=== PATIENT | male | born 1990 | race Caucasian/White ===

== ENCOUNTER 2018-03-12 10:51 | Emergency (ER) | payer SELFPAY ==
[2018-03-12] MEDS ORDERED: WATER FOR INJ,STERILE 10 ML ONE (11:30)
[2018-03-12] MEDS ORDERED: ZIPRASIDONE MESYLA 20 MG/VIAL IM ONE ×2 (11:30→17:44)
[2018-03-12 11:36] LABS: Absolute Lymphocytes (CBC) 1.5 K/uL (0.7-4.9); Absolute Monocytes 0.9 K/uL (0.1-1.3); Absolute Neutrophil 6.1 K/uL (1.8-8.0); Basophils % 0.9 % (0-1.3); Eosinophils % 0.1 % (0-4.4); Hematocrit 43.6 % (39.6-49.0); Lymphocytes % 17.8 % (15.3-44.8); MCH 31.5 pg (27.0-35.0); MCV 92.2 fL (80-100); MPV 8.4 fL (7.6-11.3); RBC Red Blood Cell Count 4.73 M/uL (4.33-5.43)
[2018-03-12 11:40] LABS: Protime INR 1.07
[2018-03-12 11:53] LABS: Bicarbonate 28 mEq/L (21-31); Glucose Level 103 mg/dL (65-120); Potassium 3.1 mEq/L (3.6-5.0); Sodium Level 137 mEq/L (135-145)
[2018-03-12 11:57] LABS: ALT/SGPT 17 IU/L (10-60); AST/SGOT 38 IU/L (10-42); Albumin 4.4 g/dL (3.2-5.5); BUN Blood Urea Nitrogen 10 mg/dL (6-20); Protein, Total 7.6 g/dL (6.0-8.3)
[2018-03-12 15:23] LABS: Alkaline Phosphatase 54 IU/L (42-121); Bilirubin Direct 0.2 mg/dL (0-0.2)
[2018-03-12] MEDS ORDERED: POTASSIUM CL SA 10 MEQ TAB PO ONE (15:27)
[2018-03-12 15:46] LABS: Alcohol Serum/Plasma < 10 mg/dl
[2018-03-12] MEDS ORDERED: LIDOCAINE 1% 20 ML MDV ONE (16:29)
[2018-03-13 03:16] LABS: Urine Blood NEGATIVE (NEG); Urine Glucose NEGATIVE (NEG); Urine Protein NEGATIVE (NEG); Urine Specific Gravity 1.025 (1.005-1.030); Urine pH 6.5 (5.0-7.0)
[2018-03-13] MEDS ORDERED: LORazepam 2 MG/ML VIAL ONE (03:21)
[2018-03-13] MEDS ORDERED: HALOPERIDOL LACT 5 MG/ML INJ ONE (03:22)
[2018-03-13 03:28] LABS: Barbiturates NEGATIVE; Benzodiazepines NEGATIVE; Cocaine NEGATIVE; Opiates NEGATIVE; Phencyclidine NEGATIVE; THC Cannibis NEGATIVE
[2018-03-13 03:32] LABS: METHAMPHETAM POSITIVE (NEGATIVE)
--- NOTE | 2018-03-13 06:58 | EKG ---
Test Date: 2018-03-12 Test Time: 11:14:01 [employer] Analyst: ROCK MEASUREMENT RESULTS: Intervals: Rate: 102 AK: 130 QRSD: 80 QT: 346 QTc: 450 [place]: P: 56 AK: 130 QRS: 68 T: 36 INTERPRETIVE STATEMENTS: Sinus tachycardia Minimal voltage criteria for LVH, may be normal variant Borderline ECG No previous ECG available for comparison Electronically Signed On 03-13-18 06:55:38 CDT by Tha Khan
--- NOTE | 2018-03-13 13:26 | EDPHYS ---
Physician Documentation [facility] Name: Quincy Cooper Age: 27 yrs Sex: Male : 1990 Arrival Date: 03/12/2018 Time: 10:55 Bed 17 Private MD: ED Physician Rj Mihcel HPI: 03/13 09:50 This 27 yrs old Male presents to ER via EMS with complaints of Psych Problem. kdr 09:50 The patient presents to the emergency department with anxiety, over unknown kdr circumstances, paranoia, psychosis, has experienced auditory hallucinations, has experienced visual hallucinations, has delusions. Past psychiatric history: Prior diagnosis: schizophrenia. Associated signs and symptoms:. Severity of symptoms: At their worst the symptoms were moderate severe incapacitating just prior to arrival, in the emergency department the symptoms are unchanged. The patient has experienced similar episodes in the past, chronically. It is unknown whether or not the patient has recently seen a physician. Historical: - Allergies: 03/12 11:00 Amoxicillin; tw2 - Home Meds: 11:00 Seroquel 50 mg Oral tab 1 tab 2 times per day [Active]; tw2 - PMHx: 11:00 Unable to obtain; tw2 - PSHx: 11:00 Unable to obtain; tw2 - Immunization history:: Adult Immunizations unknown. - Social history:: Smoking status: Patient uses tobacco products, smokes one pack cigarettes per day. Patient/guardian denies using street drugs. - Ebola Screening: : Patient denies travel to an Ebola-affected area in the 21 days before illness onset. ROS: 03/13 09:50 Constitutional: The patient is unable to give a history secondary to his psychosis and kdr overall sate of mind Unable to obtain ROS due to patient being uncooperative. Exam: 09:50 Constitutional: This is a well developed, well nourished patient who is awake, alert, kdr and in moderate distress. He is jerking and looking at the ceiling talking to himself about voices in his head Head/Face: Normocephalic, atraumatic. Eyes: Pupils equal round and reactive to light, extra-ocular motions intact. Lids and lashes normal. Conjunctiva and sclera are non-icteric and not injected. Cornea within normal limits. Periorbital areas with no swelling, redness, or edema. Neck: Trachea midline, no thyromegaly or masses palpated, and no cervical lymphadenopathy. Supple, full range of motion without nuchal rigidity, or vertebral point tenderness. No Meningismus. Chest/axilla: Normal chest wall appearance and motion. Nontender with no deformity. No lesions are appreciated. Cardiovascular: Regular rate and rhythm with a normal S1 and S2. No gallops, murmurs, or rubs. Normal PMI, no JVD. No pulse deficits. Respiratory: Lungs have equal breath sounds bilaterally, clear to auscultation and percussion. No rales, rhonchi or wheezes noted. No increased work of breathing, no retractions or nasal flaring. Abdomen/GI: Soft, non-tender, with normal bowel sounds. No distension or tympany. No guarding or rebound. No evidence of tenderness throughout. Back: No spinal tenderness. No costovertebral tenderness. Full range of motion. Neuro: Awake and alert, GCS 15, oriented to person, place, time, and situation. Cranial nerves II-XII grossly intact. Motor strength 5/5 in all extremities. Sensory grossly intact. Cerebellar exam normal. Normal gait. Psych: Awake, alert, with orientation to person, place and time. Behavior, mood, and affect are within normal limits. 09:50 Skin: abscess, that is small, approximately 2 cm(s), of the right wrist, with fluctuance, that is mild, with induration, with pointing, that is obvious, with surrounding cellulitis, that is mild. 09:50 Psych: Behavior/mood is anxious, inappropriate for age, Affect is animated, Oriented to person, place, only. Patient has no thoughts/intents to harm self or others. Judgement / Insight is impaired. Delusions/hallucinations are present and described as hearing voices, his sister and seeing things which he can't describe. Vital Signs: 03/12 10:56 BP 126 / 90; Pulse 97; Resp 24; Temp 98.6(O); Pulse Ox 100% on R/A; Weight 68.04 kg; tw2 Height 5 ft. 5 in. (165.10 cm); Pain 0/10; 11:38 BP 145 / 98; Pulse 103; Resp 20; Pulse Ox 98% on R/A; mh5 12:22 BP 115 / 81; Pulse 95; Resp 17; Pulse Ox 98% on R/A; tw2 13:16 BP 93 / 70 Supine; Pulse 88; Resp 16; Pulse Ox 98% on R/A; tw2 14:37 BP 102 / 73; Pulse 77; Resp 17; Pulse Ox 97% on R/A; tw2 15:13 BP 95 / 58; Resp 18; Pulse Ox 100% ; ag 16:18 BP 115 / 70; Pulse 102; Resp 18; Pulse Ox 98% on R/A; tw2 17:18 BP 116 / 79; Pulse 89; Resp 18; Pulse Ox 99% on R/A; tw2 18:20 BP 117 / 67; Pulse 83; Resp 16; Pulse Ox 99% on R/A; tw2 22:28 BP 108 / 75 LA Supine (auto/reg); Pulse 77 LA; Resp 18 S; Temp 97.8(O); Pulse Ox 96% on cb2 R/A; Pain 0/10; 03/13 00:00 BP 106 / 53; Pulse 68; Resp 18; Pulse Ox 99% on R/A; lp1 02:00 BP 124 / 71; Pulse 66; Resp 16; Pulse Ox 99% on R/A; lp1 04:00 BP 94 / 54; Pulse 76; Resp 16; Pulse Ox 99% on R/A; lp1 05:30 BP 100 / 70; Pulse 78; Resp 16; Pulse Ox 99% on R/A; lp1 07:00 BP 93 / 60; Pulse 73; Resp 16; Pulse Ox 98% on R/A; lp1 08:15 BP 126 / 71; Pulse 66; Resp 16; Pulse Ox 99% on R/A; em 11:00 BP 110 / 72; Pulse 66; Resp 18; Pulse Ox 98% on R/A; Pain 0/10; em 13:00 BP 116 / 74; Pulse 69; Resp 16; Pulse Ox 99% on R/A; em 03/12 10:56 Body Mass Index 24.96 (68.04 kg, 165.10 cm) tw2 Procedures: 03/12 17:31 I \T\ D: Incision and drainage was performed for an abscess of the right right wrist [id number] Prepped with Betadine, Anesthetized with 4 ml's 1% Lidocaine. Incised with #10 blade. Drained small amount purulent fluid. bloody fluid. Loculations removed. Cultures obtained. Abscess cavity explored. Packed with iodoform gauze, Dressing: sterile 4x4 gauze, the patient tolerated the procedure well. MDM: 03/13 09:50 Data reviewed: vital signs. Counseling: I had a detailed discussion with the patient kdr and/or guardian regarding: the historical points, exam findings, and any diagnostic results supporting the discharge/admit diagnosis, lab results, radiology results, the need to transfer to another facility. ED course: The patient would occasionally get agitated but was cooperative with Geodon administration which cause him to sleep. He was not violent toward the staff. 13:24 Patient medically screened. [facility] 03/12 11:00 Order name: Acetaminophen; Complete Time: 13:17 [facility] 03/12 11:00 Order name: Basic Metabolic Panel; Complete Time: 13: [facility] 03/12 11:00 Order name: CBC with Diff; Complete Time: 13:42 [facility] 03/12 11:00 Order name: ETOH Level; Complete Time: 13: [facility] 03/12 11:00 Order name: Hepatic Function; Complete Time: 13: [facility] 03/12 11:00 Order name: PT-INR; Complete Time: 13:42 [facility] 03/12 11:00 Order name: Ptt, Activated; Complete Time: 13:42 [facility] 03/12 11:00 Order name: Salicylate; Complete Time: 13:17 [facility] 03/12 11:00 Order name: Urine Drug Screen; Complete Time: 13: [facility] 03/12 16:47 Order name: Wound Culture tw2 03/13 03:13 Order name: Urine Dipstick--Ancillary (enter results); Complete Time: 13:17 [facility] 03/12 11:00 Order name: EKG; Complete Time: 11:00 [facility] 03/12 11:00 Order name: EKG - Nurse/Tech; Complete Time: 12:01 [facility] 03/12 11:00 Order name: IV Saline Lock; Complete Time: 12:01 [facility] 03/12 11:00 Order name: Labs collected and sent; Complete Time: 12: [facility] 03/12 11:00 Order name: Urine Dipstick-Ancillary (obtain specimen); Complete Time: 04:14 [facility] 03/12 16:40 Order name: Diet Regular; Complete Time: 16:40 bd 03/13 09:11 Order name: Diet Regular; Complete Time: 09:11 em Administered Medications: 03/12 11:35 Drug: Geodon 20 mg Route: IM; Site: right deltoid; tw2 12:00 Follow up: Response: No adverse reaction; Marked relief of symptoms; Marked relief of tw2 symptoms, pt asleep at this time. 15:28 Drug: Potassium Chloride 40 mEq Route: PO; tw2 17:48 Follow up: Response: No adverse reaction tw2 17:47 Drug: Geodon 20 mg Route: IM; Site: left deltoid; tw2 18:20 Follow up: Response: No adverse reaction; Marked relief of symptoms tw2 03/13 03:29 Drug: Ativan 2 mg Route: IM; Site: right gluteus; lp1 09:00 Follow up: Response: No adverse reaction em 03:30 Drug: HALdol (as decanoate) 10 mg Route: IM; Site: right gluteus; lp1 09:00 Follow up: Response: No adverse reaction em Disposition: 09:50 Co-signature as Attending Physician, Silver Ryan MD I agree with the assessment and kdr plan of care. Disposition: 03/13/18 13:24 Discharged to Home. Impression: Suicidal ideations, Adverse effect of amphetamines. - Condition is Stable. - Discharge Instructions: Depression, Adult, Polysubstance Abuse, Helping Someone Who is Suicidal, No-harm Safety Contract, Depression, Adult, [id number]. - Medication Reconciliation Form, Thank You Letter, Antibiotic Education, Prescription Opioid Use form. - Follow up: Private Physician; When: 2 - 3 days; Reason: Recheck today's complaints, Continuance of care, Re-evaluation by your physician. - Problem is new. - Symptoms have improved. Signatures: Dispatcher [employer] EDRj Hearn MD MD cha Rittger, Kevin, MD MD kdr Munoz, Colin, CEO & [employer] FOUNDER CEO [employer] F[employer]ER em Lashay Birmingham RN RN lp1 Pedro Carballo PA PA jr8 Katerina Ponce RN RN tw2 Ta Mora MD MD gs Corrections: (The following items were deleted from the chart) 13:38 13:24 03/13/2018 13:24 Discharged to Home. Impression: Suicidal ideations; Adverse em effect of amphetamines. Condition is Stable. Forms are Medication Reconciliation Form, Thank You Letter, Antibiotic Education, Prescription Opioid Use. Follow up: Private Physician; When: 2 - 3 days; Reason: Recheck today's complaints, Continuance of care, Re-evaluation by your physician. Problem is new. Symptoms have improved. keeley
--- NOTE | 2018-03-13 13:26 | ER ---
Nurse's Notes [facility] Name: Quincy Cooper Age: 27 yrs Sex: Male : 1990 Arrival Date: 03/12/2018 Time: 10:55 Bed 17 Private MD: Diagnosis: Suicidal ideations;Adverse effect of amphetamines Presentation: 03/12 10:55 Presenting complaint: EMS states: Geoff DE LA O was called because [place] the [address], he has been off his meds, he takes Seroquel, he says his "family is out to get me", and he is hearing voices, he is agitated, but cooperative, abscess to right wrist. Transition of care: patient was not received from another setting of care. Onset of symptoms was March 12, 2018. Risk Assessment: Do you want to hurt yourself or someone else? Patient reports no desire to harm self or others. Initial Sepsis Screen: Does the patient meet any 2 criteria? No. Patient's initial sepsis screen is negative. Does the patient have a suspected source of infection? No. Patient's initial sepsis screen is negative. Care prior to arrival: None. 10:55 Method Of Arrival: EMS: [facility] [place] [place] [facility] tw2 10:55 Acuity: ELIANE 2 tw2 Historical: - Allergies: 11:00 Amoxicillin; tw2 - Home Meds: 11:00 Seroquel 50 mg Oral tab 1 tab 2 times per day [Active]; tw2 - PMHx: 11:00 Unable to obtain; tw2 - PSHx: 11:00 Unable to obtain; tw2 - Immunization history:: Adult Immunizations unknown. - Social history:: Smoking status: Patient uses tobacco products, smokes one pack cigarettes per day. Patient/guardian denies using street drugs. - Ebola Screening: : Patient denies travel to an Ebola-affected area in the 21 days before illness onset. Screenin:02 Abuse screen: Denies threats or abuse. Nutritional screening: No deficits noted. tw2 Tuberculosis screening: No symptoms or risk factors identified. Fall Risk None identified. Assessment: 11:01 General: Appears in no apparent distress. unkempt, Behavior is agitated, anxious. Pain: tw2 Denies pain. Neuro: Level of Consciousness is awake, alert, obeys commands, Oriented to person, place, situation. Cardiovascular: Denies chest pain, shortness of breath, Heart tones S1 S2 Capillary refill < 3 seconds Patient's skin is warm and dry. Respiratory: Airway is patent Respiratory effort is even, unlabored, Respiratory pattern is regular, symmetrical, Breath sounds are clear bilaterally. GI: No signs and/or symptoms were reported involving the gastrointestinal system. : No signs and/or symptoms were reported regarding the genitourinary system. EENT: No signs and/or symptoms were reported regarding the EENT system. Derm: Abscess located on right wrist. Musculoskeletal: Range of motion: intact in all extremities. 12:22 Reassessment: Patient appears in no apparent distress at this time. Patient and/or tw2 family updated on plan of care and expected duration. Pain level reassessed. pt sleeping at this time. 13:07 Reassessment: Patient appears in no apparent distress at this time. Patient and/or tw2 family updated on plan of care and expected duration. Pain level reassessed. pt still sleeping at this time, noted to be kicking at times in the bed. 13:45 Reassessment: per Dr. Ryan, can let pt sleep and give PO Potassium once pt wakes up. tw2 14:10 Reassessment: Patient appears in no apparent distress at this time. Patient and/or tw2 family updated on plan of care and expected duration. Pain level reassessed. 14:37 Reassessment: Patient appears in no apparent distress at this time. Patient and/or tw2 family updated on plan of care and expected duration. Pain level reassessed. pt asleep at this time. 15:24 Reassessment: Mental Health at bedside at this time. tw2 16:19 Reassessment: Patient appears in no apparent distress at this time. Patient and/or tw2 family updated on plan of care and expected duration. Pain level reassessed. 17:51 Reassessment: Report given to [facility] at [facility] . aa5 18:33 Reassessment: Patient appears in no apparent distress at this time. Patient and/or tw2 family updated on plan of care and expected duration. Pain level reassessed. 19:30 Reassessment: Patient appears in no apparent distress at this time. patient resting, lp1 eyes closed, respirations unlabored; sitter at bedside. 20:30 Reassessment: Patient appears in no apparent distress at this time. No changes from lp1 previously documented assessment. Patient and/or family updated on plan of care and expected duration. Pain level reassessed. 21:30 Reassessment: Patient appears in no apparent distress at this time. No changes from lp1 previously documented assessment. Patient and/or family updated on plan of care and expected duration. Pain level reassessed. 22:30 Reassessment: Patient appears in no apparent distress at this time. No changes from lp1 previously documented assessment. 23:30 Reassessment: Patient resting, eyes closed, respirations unlabored. 1 03/13 00:30 Reassessment: Patient appears in no apparent distress at this time. No changes from lp1 previously documented assessment. Patient and/or family updated on plan of care and expected duration. Pain level reassessed. 01:30 Reassessment: Patient awake at this time, calm; States not understanding why he is in [facility]; Given orange juice at this time. 02:30 Reassessment: Patient lying on bed, calm; States "I might leave later this morning", lp1 patient understood that Provider will come and see him prior. 03:15 Reassessment: Patient up to bathroom, states ready to leave; Dr. Mora notified; 1 Patient denies any suicidal or homicidal ideations. 04:15 Reassessment: Patient appears in no apparent distress at this time. Patient resting, lp1 eyes closed, respirations unlabored. 05:15 Reassessment: Patient appears in no apparent distress at this time. No changes from 1 previously documented assessment. 06:15 Reassessment: Patient appears in no apparent distress at this time. Patient and/or 1 family updated on plan of care and expected duration. Pain level reassessed. Patient resting, eyes closed, respirations unlabored. 08:15 General: Appears in no apparent distress. comfortable, Behavior is calm, cooperative. em Pain: Denies pain. Neuro: Level of Consciousness is awake, alert, obeys commands, Oriented to person, place, situation. Cardiovascular: Capillary refill < 3 seconds Patient's skin is warm and dry. Respiratory: Airway is patent Respiratory effort is even, unlabored, Respiratory pattern is regular, symmetrical. GI: Abdomen is flat. Derm: Skin is intact, Skin is pink, warm \\T\\ dry. Musculoskeletal: Range of motion: intact in all extremities. 08:30 Reassessment: Patient appears in no apparent distress at this time. I agree with above iw assessment by Colin Whatley LVN. 09:30 Reassessment: Patient appears in no apparent distress at this time. resting with eyes em closed, respirations even and unlabored, skin pink warm and dry. 10:25 Reassessment: Patient appears in no apparent distress at this time. Patient and/or em family updated on plan of care and expected duration. Pain level reassessed. pt eating breakfast, request to be discharged, "has to go to work" denies SI/HI or hallucinations. 11:42 Reassessment: Patient appears in no apparent distress at this time. Patient and/or em family updated on plan of care and expected duration. Pain level reassessed. pt request to go home, Dr. Michel notified. 12:36 Reassessment: Patient appears in no apparent distress at this time. No changes from em previously documented assessment. Patient and/or family updated on plan of care and expected duration. Pain level reassessed. 13:10 Reassessment: Patient appears in no apparent distress at this time. Dr. Michel at em bedside discussing POC, pt currently denies SI/HI or hallucinations. Psych: 03/12 10:55 Subjective: Patient's mood is irritable, Hallucinations are auditory. Objective: tw2 Patient is irritable, using poor eye contact, Speech is normal, Affect is appropriate. Interventions: Removed personal items and placed in bag. Patient placed in hospital gown. Suicide Risk Assessment: Sad Person Scale: Sex of patient: Male: Score 1 point. Age of patient: Score 1 point if patient 15-34. Depression: Previous Attempt: Substance Abuse: Rational Thinking: Score 1 point if patient is lacking rational thinking. Social Support: Score 1 point if social support is lacking and/or unavailable. Organized Plan: Score 0 if patient did not have an organized plan in place. Relationship: Score 1 point if patient is , , , or for a single male Chronic Sickness: TOTAL POINTS: If total points are 5-6, proposed clinical action is to strongly consider hospitalization, depending upon confidence in the follow-up arrangement. Implement suicide precautions. Safety Checks: Personal items have been removed. Door is closed to patient's room. No visitors are present at this time. Pt denies substance abuse. 10:55 Commitment: per provider pt in psychosis state at this time. tw2 Vital Signs: 10:56 BP 126 / 90; Pulse 97; Resp 24; Temp 98.6(O); Pulse Ox 100% on R/A; Weight 68.04 kg; tw2 Height 5 ft. 5 in. (165.10 cm); Pain 0/10; 11:38 BP 145 / 98; Pulse 103; Resp 20; Pulse Ox 98% on R/A; mh5 12:22 BP 115 / 81; Pulse 95; Resp 17; Pulse Ox 98% on R/A; tw2 13:16 BP 93 / 70 Supine; Pulse 88; Resp 16; Pulse Ox 98% on R/A; tw2 14:37 BP 102 / 73; Pulse 77; Resp 17; Pulse Ox 97% on R/A; tw2 15:13 BP 95 / 58; Resp 18; Pulse Ox 100% ; ag 16:18 BP 115 / 70; Pulse 102; Resp 18; Pulse Ox 98% on R/A; tw2 17:18 BP 116 / 79; Pulse 89; Resp 18; Pulse Ox 99% on R/A; tw2 18:20 BP 117 / 67; Pulse 83; Resp 16; Pulse Ox 99% on R/A; tw2 22:28 BP 108 / 75 LA Supine (auto/reg); Pulse 77 LA; Resp 18 S; Temp 97.8(O); Pulse Ox 96% on cb2 R/A; Pain 0/10; 03/13 00:00 BP 106 / 53; Pulse 68; Resp 18; Pulse Ox 99% on R/A; lp1 02:00 BP 124 / 71; Pulse 66; Resp 16; Pulse Ox 99% on R/A; lp1 04:00 BP 94 / 54; Pulse 76; Resp 16; Pulse Ox 99% on R/A; lp1 05:30 BP 100 / 70; Pulse 78; Resp 16; Pulse Ox 99% on R/A; lp1 07:00 BP 93 / 60; Pulse 73; Resp 16; Pulse Ox 98% on R/A; lp1 08:15 BP 126 / 71; Pulse 66; Resp 16; Pulse Ox 99% on R/A; em 11:00 BP 110 / 72; Pulse 66; Resp 18; Pulse Ox 98% on R/A; Pain 0/10; em 13:00 BP 116 / 74; Pulse 69; Resp 16; Pulse Ox 99% on R/A; em 03/12 10:56 Body Mass Index 24.96 (68.04 kg, 165.10 cm) tw2 ED Course: 03/12 10:55 Patient arrived in ED. tw2 10:55 Appears agitated. Safety Checks: Personal items have been removed. The door is open or tw2 patient has been placed in a hallway bed/chair. There are no family/friend visitors at this time Sitter present at this time. sitter to remain throughout shift. 10:56 Triage completed. tw2 10:57 Arm band placed on Patient Sitter at bedside at this time and will remain during pts tw2 stay. 10:59 Silver Ryan MD is Attending Physician. kdr 11:00 Safety Checks: Personal items have been removed. The door is open or patient has been tw2 placed in a hallway bed/chair. There are no family/friend visitors at this time. 11:01 Katerina Ponce RN is Primary Nurse. tw2 11:03 Bed in low position. Side rails up X2. sitter at bedside at this time. Pulse ox on. tw2 NIBP on. 11:14 EKG done, by health information technician. reviewed by Silver Ryan MD. sm3 11:15 Safety Checks: Personal items have been removed. The door is open or patient has been tw2 placed in a hallway bed/chair. There are no family/friend visitors at this time Sitter present at this time. 11:30 Safety Checks: Personal items have been removed. The door is open or patient has been tw2 placed in a hallway bed/chair. There are no family/friend visitors at this time Sitter present at this time. 11:37 Initial lab(s) drawn, by me, sent to lab. Inserted saline lock: 18 gauge in right mh5 forearm, using aseptic technique. Blood collected. 11:45 Appears agitated. Appears restless. Safety Checks: Personal items have been removed. tw2 The door is open or patient has been placed in a hallway bed/chair. There are no family/friend visitors at this time Sitter present at this time. 12:00 Resting quietly. Appears to be sleeping. Safety Checks: Personal items have been tw2 removed. The door is open or patient has been placed in a hallway bed/chair. There are no family/friend visitors at this time Sitter present at this time. 12:15 Safety Checks: Personal items have been removed. The door is open or patient has been tw2 placed in a hallway bed/chair. There are no family/friend visitors at this time Sitter present at this time. 12:30 Safety Checks: Personal items have been removed. The door is open or patient has been tw2 placed in a hallway bed/chair. There are no family/friend visitors at this time Sitter present at this time. 12:45 Safety Checks: Personal items have been removed. The door is open or patient has been tw2 placed in a hallway bed/chair. There are no family/friend visitors at this time Sitter present at this time. 13:00 No apparent distress. Resting quietly. Appears to be sleeping. Safety Checks: Personal tw2 items have been removed. The door is open or patient has been placed in a hallway bed/chair. There are no family/friend visitors at this time Sitter present at this time. 13:15 Safety Checks: Personal items have been removed. The door is open or patient has been tw2 placed in a hallway bed/chair. There are no family/friend visitors at this time Sitter present at this time. 13:30 Safety Checks: Personal items have been removed. The door is open or patient has been tw2 placed in a hallway bed/chair. There are no family/friend visitors at this time Sitter present at this time. 13:45 Safety Checks: Personal items have been removed. The door is open or patient has been tw2 placed in a hallway bed/chair. There are no family/friend visitors at this time Sitter present at this time. 14:00 No apparent distress. Resting quietly. Appears to be sleeping. Safety Checks: Personal tw2 items have been removed. The door is open or patient has been placed in a hallway bed/chair. There are no family/friend visitors at this time Sitter present at this time. 14:15 Safety Checks: Personal items have been removed. The door is open or patient has been tw2 placed in a hallway bed/chair. There are no family/friend visitors at this time Sitter present at this time. 14:30 Safety Checks: Personal items have been removed. The door is open or patient has been tw2 placed in a hallway bed/chair. There are no family/friend visitors at this time Sitter present at this time. 14:45 Safety Checks: Personal items have been removed. The door is open or patient has been tw2 placed in a hallway bed/chair. There are no family/friend visitors at this time Sitter present at this time. 15:00 No apparent distress. Resting quietly. Appears to be sleeping. Safety Checks: Personal tw2 items have been removed. A family member and/or friend is present and encouraged to stay. There are no family/friend visitors at this time Sitter present at this time. 15:20 No provider procedures requiring assistance completed. tw2 15:24 No apparent distress. Safety Checks: Personal items have been removed. The door is open tw2 or patient has been placed in a hallway bed/chair. Other: Mental Health at bedside at this time performing assessment on pt. lunch tray was placed in front of pt at this time. 15:45 No apparent distress. eating lunch at this time. Safety Checks: Personal items have ae1 been removed. The door is open or patient has been placed in a hallway bed/chair. There are no family/friend visitors at this time Sitter present at this time. 16:00 No apparent distress. Safety Checks: Personal items have been removed. The door is open tw2 or patient has been placed in a hallway bed/chair. There are no family/friend visitors at this time Sitter present at this time. 16:15 Safety Checks: Personal items have been removed. The door is open or patient has been tw2 placed in a hallway bed/chair. There are no family/friend visitors at this time Sitter present at this time. 16:30 Safety Checks: Personal items have been removed. The door is open or patient has been tw2 placed in a hallway bed/chair. There are no family/friend visitors at this time Sitter present at this time. 16:45 Safety Checks: Personal items have been removed. The door is open or patient has been tw2 placed in a hallway bed/chair. There are no family/friend visitors at this time Sitter present at this time. 16:59 Mental Health [place] notified . faxed chart to [facility] psych,[facility] behavioral,[facility], [facility]. 17:00 Appears agitated. Pt. is pacing. standing at door, states "when can i leave, why am i tw2 still here", provider notified. Safety Checks: Personal items have been removed. The door is open or patient has been placed in a hallway bed/chair. There are no family/friend visitors at this time Sitter present at this time. 17:15 Safety Checks: Personal items have been removed. The door is open or patient has been tw2 placed in a hallway bed/chair. There are no family/friend visitors at this time Sitter present at this time. 17:30 Appears agitated. Appears restless. Safety Checks: Personal items have been removed. tw2 The door is open or patient has been placed in a hallway bed/chair. There are no family/friend visitors at this time Sitter present at this time. 17:45 Pt. is pacing. Appears restless. Safety Checks: Personal items have been removed. The tw2 door is open or patient has been placed in a hallway bed/chair. There are no family/friend visitors at this time Sitter present at this time. 17:45 Wound Culture Sent. tw2 18:00 Appears agitated. Appears restless. Safety Checks: Personal items have been removed. tw2 The door is open or patient has been placed in a hallway bed/chair. There are no family/friend visitors at this time Sitter present at this time. 18:15 Appears restless. Safety Checks: Personal items have been removed. The door is open or tw2 patient has been placed in a hallway bed/chair. Sitter present at this time. 18:20 No apparent distress. Resting quietly. Appears to be sleeping. Safety Checks: Personal tw2 items have been removed. The door is open or patient has been placed in a hallway bed/chair. There are no family/friend visitors at this time Sitter present at this time. 18:30 No apparent distress. Resting quietly. Appears to be sleeping. Safety Checks: Personal tw2 items have been removed. The door is open or patient has been placed in a hallway bed/chair. There are no family/friend visitors at this time Sitter present at this time. 18:45 Safety Checks: Personal items have been removed. The door is open or patient has been tw2 placed in a hallway bed/chair. The door is not opened, nor is patient placed in a hallway bed/chair. Sitter present at this time. 19:00 No apparent distress. Resting quietly. Appears to be sleeping. Safety Checks: Personal tw2 items have been removed. The door is open or patient has been placed in a hallway bed/chair. There are no family/friend visitors at this time Sitter present at this time. 19:00 Report given to RUDI Metz. tw2 19:15 Appears to be sleeping. Safety Checks: Personal items have been removed. The door is lp1 open or patient has been placed in a hallway bed/chair. There are no family/friend visitors at this time Sitter present at this time. 19:30 Appears to be sleeping. Safety Checks: Personal items have been removed. The door is lp1 open or patient has been placed in a hallway bed/chair. There are no family/friend visitors at this time. 19:36 Primary Nurse role handed off by Katerina Ponce RN tw2 19:45 Safety Checks: Personal items have been removed. The door is open or patient has been lp1 placed in a hallway bed/chair. Sitter present at this time. 20:00 Safety Checks: Personal items have been removed. The door is open or patient has been lp1 placed in a hallway bed/chair. Sitter present at this time. 20:15 Safety Checks: Personal items have been removed. The door is open or patient has been lp1 placed in a hallway bed/chair. Sitter present at this time. 20:30 Safety Checks: Personal items have been removed. The door is open or patient has been lp1 placed in a hallway bed/chair. Sitter present at this time. 20:45 Safety Checks: Personal items have been removed. The door is open or patient has been lp1 placed in a hallway bed/chair. Sitter present at this time. 21:00 Safety Checks: Personal items have been removed. The door is open or patient has been lp1 placed in a hallway bed/chair. Sitter present at this time. 21:15 Appears to be sleeping. Safety Checks: Personal items have been removed. The door is lp1 open or patient has been placed in a hallway bed/chair. There are no family/friend visitors at this time Sitter present at this time. 21:30 Safety Checks: Personal items have been removed. The door is open or patient has been lp1 placed in a hallway bed/chair. Sitter present at this time. 21:45 Safety Checks: Personal items have been removed. The door is open or patient has been lp1 placed in a hallway bed/chair. There are no family/friend visitors at this time Sitter present at this time. 22:00 Safety Checks: Personal items have been removed. The door is open or patient has been lp1 placed in a hallway bed/chair. There are no family/friend visitors at this time Sitter present at this time. 22:15 Appears to be sleeping. Safety Checks: Personal items have been removed. The door is lp1 open or patient has been placed in a hallway bed/chair. There are no family/friend visitors at this time Sitter present at this time. 22:21 Lashay Birmingham, RN is Primary Nurse. lp1 22:30 Safety Checks: Personal items have been removed. The door is open or patient has been lp1 placed in a hallway bed/chair. There are no family/friend visitors at this time Sitter present at this time. 22:45 Safety Checks: Personal items have been removed. The door is open or patient has been lp1 placed in a hallway bed/chair. There are no family/friend visitors at this time Sitter present at this time. 23:00 Safety Checks: Personal items have been removed. The door is open or patient has been lp1 placed in a hallway bed/chair. There are no family/friend visitors at this time Sitter present at this time. 23:15 Safety Checks: Personal items have been removed. The door is open or patient has been lp1 placed in a hallway bed/chair. Sitter present at this time. 23:30 Safety Checks: Personal items have been removed. The door is open or patient has been lp1 placed in a hallway bed/chair. Sitter present at this time. 23:45 Appears to be sleeping. Safety Checks: Personal items have been removed. The door is lp1 open or patient has been placed in a hallway bed/chair. Sitter present at this time. 03/13 00:00 Safety Checks: Personal items have been removed. The door is open or patient has been lp1 placed in a hallway bed/chair. Sitter present at this time. 00:15 No apparent distress. Appears to be sleeping. Safety Checks: Personal items have been lp1 removed. The door is open or patient has been placed in a hallway bed/chair. There are no family/friend visitors at this time Sitter present at this time. 00:30 Safety Checks: Personal items have been removed. The door is open or patient has been lp1 placed in a hallway bed/chair. Sitter present at this time. 00:45 Safety Checks: Personal items have been removed. The door is open or patient has been lp1 placed in a hallway bed/chair. Sitter present at this time. 01:00 Appears to be sleeping. Safety Checks: Personal items have been removed. The door is lp1 open or patient has been placed in a hallway bed/chair. There are no family/friend visitors at this time Sitter present at this time. 01:15 Safety Checks: Personal items have been removed. The door is open or patient has been lp1 placed in a hallway bed/chair. Sitter present at this time. 01:30 Safety Checks: Personal items have been removed. The door is open or patient has been lp1 placed in a hallway bed/chair. Sitter present at this time. 01:45 Safety Checks: Personal items have been removed. The door is open or patient has been lp1 placed in a hallway bed/chair. Sitter present at this time. 02:00 Safety Checks: Personal items have been removed. The door is open or patient has been lp1 placed in a hallway bed/chair. Sitter present at this time. 02:15 Appears to be sleeping. Safety Checks: Personal items have been removed. The door is lp1 open or patient has been placed in a hallway bed/chair. There are no family/friend visitors at this time Sitter present at this time. 02:30 Safety Checks: Personal items have been removed. The door is open or patient has been lp1 placed in a hallway bed/chair. There are no family/friend visitors at this time Sitter present at this time. 02:45 Safety Checks: Personal items have been removed. The door is open or patient has been lp1 placed in a hallway bed/chair. Sitter present at this time. 03:00 Safety Checks: Personal items have been removed. The door is open or patient has been lp1 placed in a hallway bed/chair. Sitter present at this time. 03:15 Pt. is pacing. Safety Checks: Personal items have been removed. The door is open or lp1 patient has been placed in a hallway bed/chair. There are no family/friend visitors at this time Sitter present at this time. 03:15 IV discontinued, No redness/swelling at site. Pressure dressing applied. lp1 03:30 Pt. is pacing. Safety Checks: Personal items have been removed. The door is open or lp1 patient has been placed in a hallway bed/chair. Sitter present at this time. 03:45 Safety Checks: Personal items have been removed. The door is open or patient has been lp1 placed in a hallway bed/chair. Sitter present at this time. 04:00 Safety Checks: Personal items have been removed. The door is open or patient has been lp1 placed in a hallway bed/chair. There are no family/friend visitors at this time. 04:15 Safety Checks: Personal items have been removed. The door is open or patient has been lp1 placed in a hallway bed/chair. There are no family/friend visitors at this time. 04:30 Safety Checks: Personal items have been removed. The door is open or patient has been lp1 placed in a hallway bed/chair. There are no family/friend visitors at this time. 04:45 Safety Checks: Personal items have been removed. The door is open or patient has been lp1 placed in a hallway bed/chair. Sitter present at this time. 05:00 Appears to be sleeping. Safety Checks: Personal items have been removed. The door is lp1 open or patient has been placed in a hallway bed/chair. There are no family/friend visitors at this time Sitter present at this time. 05:15 Safety Checks: Personal items have been removed. The door is open or patient has been lp1 placed in a hallway bed/chair. There are no family/friend visitors at this time. 05:30 Safety Checks: Personal items have been removed. The door is open or patient has been lp1 placed in a hallway bed/chair. Sitter present at this time. 05:45 Safety Checks: Personal items have been removed. The door is open or patient has been lp1 placed in a hallway bed/chair. There are no family/friend visitors at this time. 06:00 Appears to be sleeping. Safety Checks: Personal items have been removed. The door is lp1 open or patient has been placed in a hallway bed/chair. There are no family/friend visitors at this time. 06:15 Safety Checks: Personal items have been removed. The door is open or patient has been lp1 placed in a hallway bed/chair. Sitter present at this time. 06:30 Appears to be sleeping. Safety Checks: Personal items have been removed. The door is lp1 open or patient has been placed in a hallway bed/chair. Sitter present at this time. 06:45 Safety Checks: Personal items have been removed. The door is open or patient has been lp1 placed in a hallway bed/chair. There are no family/friend visitors at this time. 13:17 Attending Physician role handed off by Silver Ryan MD cha 13:17 Rj Michel MD is Attending Physician. [facility] [place] Administered Medications: 03/12 11:35 Drug: Geodon 20 mg Route: IM; Site: right deltoid; tw2 12:00 Follow up: Response: No adverse reaction; Marked relief of symptoms; Marked relief of tw2 symptoms, pt asleep at this time. 15:28 Drug: Potassium Chloride 40 mEq Route: PO; tw2 17:48 Follow up: Response: No adverse reaction tw2 17:47 Drug: Geodon 20 mg Route: IM; Site: left deltoid; tw2 18:20 Follow up: Response: No adverse reaction; Marked relief of symptoms tw2 03/13 03:29 Drug: Ativan 2 mg Route: IM; Site: right gluteus; lp1 09:00 Follow up: Response: No adverse reaction em 03:30 Drug: HALdol (as decanoate) 10 mg Route: IM; Site: right gluteus; lp1 09:00 Follow up: Response: No adverse reaction em Outcome: 13:24 Discharge ordered by . keeley 13:38 Discharged to home ambulatory. em 13:38 Condition: good 13:38 Discharge instructions given to patient, Instructed on discharge instructions, follow up and referral plans. Demonstrated understanding of instructions, follow-up care. 13:38 Patient left the ED. em Addendum: 03/17/2018 12:59 Addendum: Culture Results: Positive wound culture. Phone call Attempt #1 No answer. Not s s a working number. Signatures: Aida Peterson Corey, MD MD cha Rittger, Kevin, MD MD kdr Munoz, Edgar, TELEVISION NEWSCAST DIRECTOR TELEVISION NEWSCAST DIRECTOR em Shalini Vargas, RN RN Chelo Mcdonald, RN RN aa5 Lani Burns RN RUDI ss Lashay Birmingham RN RN lp1 Delisa Waite Tara RN RN tw2 Aguilar Belcher RN RN ae1 Rosa Thomas 5 Cristiano Tim Shakira 3 Corrections: (The following items were deleted from the chart) 03/12 14:45 10:55 Commitment: psychosis state at this time. tw2 tw 15:21 14:43 Safety Checks: Personal items have been removed. The door is open or patient has tw2 been placed in a hallway bed/chair. There are no family/friend visitors at this time Sitter present at this time. tw2 03/13 04:24 03:15 Reassessment: Patient up to bathroom, states ready to leave; Dr. Mora notified lp1 lp1 13:19 10:25 Reassessment: Patient appears in no apparent distress at this time. Patient em and/or family updated on plan of care and expected duration. Pain level reassessed. pt eating breakfast, request to be discharged, "has to go to work" em
== END 2018-03-13 13:38 | disposition home or self-care (01) ==
LOC: ER 10:51
DX: R45.851 Suicidal ideations (principal); T43.625A Adverse effect of amphetamines, initial encounter; F17.210 Nicotine dependence, cigarettes, uncomplicated; Z88.1 Allergy status to other antibiotic agents
CPT/HCPCS: 36415; 80048; 80076; 80307; 80320; 80329; 81003; 85025; 85610; 85730; 87070; 87077; 87186; 87205; 93005; 96372; 99285; J1630; J3486

== ENCOUNTER 2018-05-06 01:00 | Emergency (ER) | payer SELFPAY ==
[2018-05-06] MEDS ORDERED: ZIPRASIDONE MESYLA 20 MG/VIAL IM ONE (01:17)
[2018-05-06] MEDS ORDERED: WATER FOR INJ,STERILE 10 ML ONE (01:17)
--- NOTE | 2018-05-06 01:55 | ER ---
Nurse's Notes [facility] Name: Quincy Cooper Age: 27 yrs Sex: Male : 1990 Arrival Date: 05/06/2018 Time: 01:02 Bed 16 Private MD: Diagnosis: Presentation: 05/06 01:35 Presenting complaint: Per registration, unknown woman dropped off patient, states he lp1 [place]; Patient observed to be paranoid states "They are trying to take down all of the ex-, they are sucking away all of my oxygen, I need a blanket to cover myself so they can't detect me"; patient pacing in room, anxious; Denies harm to self or others. Transition of care: patient was not received from another setting of care. Onset of symptoms was May 06, 2018. Risk Assessment: Do you want to hurt yourself or someone else? Patient reports no desire to harm self or others. Initial Sepsis Screen: Does the patient meet any 2 criteria? No. Patient's initial sepsis screen is negative. Does the patient have a suspected source of infection? No. Patient's initial sepsis screen is negative. Care prior to arrival: None. 01:35 Method Of Arrival: Ambulatory lp1 01:35 Acuity: ELIANE 2 lp1 Historical: - Allergies: 01:41 Amoxicillin; lp1 - Home Meds: 01:41 Seroquel 50 mg Oral tab 1 tab 2 times per day [Active]; lp1 - PMHx: 01:41 Unable to obtain; lp1 - PSHx: 01:41 Unable to obtain; lp1 - Immunization history:: Adult Immunizations unknown. - Social history:: Smoking status: unknown. - Ebola Screening: : No symptoms or risks identified at this time. Screenin:43 Abuse screen: Denies threats or abuse. Denies injuries from another. Nutritional lp1 screening: No deficits noted. Tuberculosis screening: No symptoms or risk factors identified. Fall Risk None identified. Assessment: 01:38 General: Appears unkempt, Behavior is anxious, restless. Pain: Denies pain. Neuro: lp1 Level of Consciousness is awake, alert, obeys commands, Oriented to person, place, situation, Gait is steady, Speech is normal. Cardiovascular: Patient's skin is warm and dry. Respiratory: Respiratory effort is even, Respiratory pattern is hyperventilation Patient anxious at this time, states "They are trying to take away my oxygen! I need a mask!". GI: No deficits noted. : No deficits noted. EENT: No deficits noted. Derm: Multiple superficial abrasions noted to bilateral lower legs. Musculoskeletal: Range of motion: intact in all extremities. 01:42 Reassessment: When attempting to give patient Cassandra MILAN, patient states "No, please I lp1 don't want that, I would rather leave if I can't call the FBI"; Patient escorted by security out of ED. Vital Signs: 01:40 BP 117 / 85; Pulse 122; Resp 22; Temp 99.7(O); Pulse Ox 99% on R/A; Weight 73.48 kg; lp1 Height 5 ft. 5 in. (165.10 cm); 01:40 Body Mass Index 26.96 (73.48 kg, 165.10 cm) lp1 ED Course: 01:02 Patient arrived in ED. es 01:12 Josué Manley NP is PHCP. pm1 01:12 Jas Rosales MD is Attending Physician. pm1 01:15 EKG done, by ED staff, reviewed by Josué Manley NP. lp1 01:35 Lashay Birmingham, RUDI is Primary Nurse. lp1 01:37 Triage completed. lp1 01:37 Inserted saline lock: 20 gauge in left forearm, using aseptic technique. Blood lp1 collected. 01:41 Arm band placed on left wrist. lp1 01:43 No provider procedures requiring assistance completed. IV discontinued, Pressure lp1 dressing applied. 01:43 Patient has correct armband on for positive identification. lp1 Administered Medications: No medications were administered Outcome: 01:44 Eloped from patient exam room, after seeing physician Time discovered patient gone: lp1 May 06, 2018 at 01:44 01:54 Patient left the ED. lp1 Signatures: Savannah Urena Laura, RUDI RN lp1 Josué Manley NP NUMBERER AND WIRER pm1
--- NOTE | 2018-05-06 09:38 | EKG ---
Test Date: 2018-05-06 Test Time: 01:14:52 Library Circulation Technician: NATALIO MEASUREMENT RESULTS: Intervals: Rate: 103 [place]: 116 QRSD: 76 QT: 342 QTc: 448 [place]: P: 48 [place]: 116 QRS: 72 T: 30 INTERPRETIVE STATEMENTS: Sinus tachycardia Otherwise normal ECG Compared to ECG 03/12/2018 11:14:01 Left ventricular hypertrophy no longer present Electronically Signed On 05-06-18 09:38:01 CDT by Trenton Lora
--- NOTE | 2018-05-07 01:54 | EDPHYS ---
Physician Documentation [facility] Name: Quincy Cooper Age: 27 yrs Sex: Male : 1990 Arrival Date: 05/06/2018 Time: 01:02 Bed 16 Private MD: ED Physician Jas Rosales HPI: 05/06 01:20 This 27 yrs old Male presents to ER via Ambulatory with complaints of pm1 agitation. 01:20 The patient presents to the emergency department with paranoia. Onset: The pm1 symptoms/episode began/occurred at an unknown time. Past psychiatric history: Prior diagnosis: unknown, Psychiatric medications include: none, the patient has a previous inpatient psychiatric history, 2 month(s) ago. Associated signs and symptoms: Pertinent positives; paranoia, possible substance abuse, Pertinent negatives: homicidal ideation, suicide ideation. Severity of symptoms: Pain is currently a 0 / 10. The patient has not recently seen a physician. Patient was dropped off by two unknown women who picked him up. Patient was walking on the side of the street. Patient does not have any complaints but is paranoid that he is being watched and observed with solar flares. Historical: - Allergies: 01:41 Amoxicillin; lp1 - Home Meds: 01:41 Seroquel 50 mg Oral tab 1 tab 2 times per day [Active]; lp1 - PMHx: 01:41 Unable to obtain; lp1 - PSHx: 01:41 Unable to obtain; lp1 - Immunization history:: Adult Immunizations unknown. - Social history:: Smoking status: unknown. - Ebola Screening: : No symptoms or risks identified at this time. ROS: 01:50 Constitutional: Negative for fever, chills, and weight loss, Eyes: Negative for injury, pm1 pain, redness, and discharge, ENT: Negative for injury, pain, and discharge, Neck: Negative for injury, pain, and swelling, Cardiovascular: Negative for chest pain, palpitations, and edema, Respiratory: Negative for shortness of breath, cough, wheezing, and pleuritic chest pain, Abdomen/GI: Negative for abdominal pain, nausea, vomiting, diarrhea, and constipation, Back: Negative for injury and pain, : Negative for injury, bleeding, discharge, and swelling, MS/Extremity: Negative for injury and deformity, Skin: Negative for injury, rash, and discoloration, Neuro: Negative for headache, weakness, numbness, tingling, and seizure. 01:50 Psych: Negative for homicidal ideation, suicide gesture, suicidal ideation. Exam: 01:50 Constitutional: This is a well developed, well nourished patient who is awake, alert, pm1 and in no acute distress. Head/Face: Normocephalic, atraumatic. Eyes: Pupils equal round and reactive to light, extra-ocular motions intact. Lids and lashes normal. Conjunctiva and sclera are non-icteric and not injected. Cornea within normal limits. Periorbital areas with no swelling, redness, or edema. ENT: Nares patent. No nasal discharge, no septal abnormalities noted. Tympanic membranes are normal and external auditory canals are clear. Oropharynx with no redness, swelling, or masses, exudates, or evidence of obstruction, uvula midline. Mucous membranes moist. Neck: Trachea midline, no thyromegaly or masses palpated, and no cervical lymphadenopathy. Supple, full range of motion without nuchal rigidity, or vertebral point tenderness. No Meningismus. Chest/axilla: Normal chest wall appearance and motion. Nontender with no deformity. No lesions are appreciated. Cardiovascular: Regular rate and rhythm with a normal S1 and S2. No gallops, murmurs, or rubs. Normal PMI, no JVD. No pulse deficits. Respiratory: Lungs have equal breath sounds bilaterally, clear to auscultation and percussion. No rales, rhonchi or wheezes noted. No increased work of breathing, no retractions or nasal flaring. Abdomen/GI: Soft, non-tender, with normal bowel sounds. No distension or tympany. No guarding or rebound. No evidence of tenderness throughout. Back: No spinal tenderness. No costovertebral tenderness. Full range of motion. Skin: Warm, dry with normal turgor. Normal color with no rashes, no lesions, and no evidence of cellulitis. MS/ Extremity: Pulses equal, no cyanosis. Neurovascular intact. Full, normal range of motion. 01:50 Neuro: Orientation: is normal, Motor: moves all fours. 01:50 Psych: Behavior/mood is anxious, Affect is animated, Oriented to person, place, time, Patient has no thoughts/intents to harm self or others. Vital Signs: 01:40 BP 117 / 85; Pulse 122; Resp 22; Temp 99.7(O); Pulse Ox 99% on R/A; Weight 73.48 kg; lp1 Height 5 ft. 5 in. (165.10 cm); 01:40 Body Mass Index 26.96 (73.48 kg, 165.10 cm) lp1 MDM: 01:16 Patient medically screened. pm1 01:20 Data reviewed: vital signs. Data interpreted: Pulse oximetry: on room air is 99 %. pm1 Interpretation: normal. 01:50 Refusal of service: The patient/guardian displays adequate decision making capability pm1 and despite a detailed discussion of alternatives, benefits, risks, and consequences refuses: Admission to the hospital for further work-up and treatment, Medications, Patient does not want to be helped at the hospital or receive any medications. Patient wants to go and contact the police or FBI. 02:07 ED course: Impression: Paranoia, substance abuse. pm1 05/06 01:17 Order name: EKG; Complete Time: 01:18 pm1 05/06 01:17 Order name: EKG - Nurse/Tech pm1 05/06 01:17 Order name: IV Saline Lock pm1 05/06 01:17 Order name: Labs collected and sent pm1 05/06 01:17 Order name: Urine Dipstick-Ancillary (obtain specimen) pm1 Administered Medications: No medications were administered Disposition: 02:35 Co-signature as Attending Physician, Jas Rosales MD. pk Disposition: 05/06/18 01:54 Patient left the facility after being seen by provider. - Patient left due to other. Signatures: Dispatcher [employer] EDMS Jas Rosales MD MD pkl Lashay Birmingham, RN RN lp1 Josué Manley NP CRIMINAL JUSTICE TEACHER pm1
== END 2018-05-06 01:54 | disposition left against medical advice (07) ==
LOC: ER 01:00
DX: Z53.21 Procedure and treatment not carried out due to patient leaving prior to being seen by health care provider (principal)
CPT/HCPCS: 93005; 99283; J3486